=== PATIENT | female | born 1990 | race Caucasian/White ===

== ENCOUNTER 2016-08-20 10:52 | Outpatient (CLI) | payer OTHER | END 2016-08-20 10:53 | disposition home or self-care (01) | LOC: BABIESSH 10:52 | PROVIDERS: ATTEND Obstetrics & Gynecology | DX: Z39.1 Encounter for care and examination of lactating mother (principal) ==

== ENCOUNTER 2016-08-27 15:02 | Outpatient (CLI) | payer OTHER | END 2016-08-27 15:03 | disposition home or self-care (01) | LOC: BABIESSH 15:02 | PROVIDERS: ATTEND Obstetrics & Gynecology | DX: Z39.1 Encounter for care and examination of lactating mother (principal) ==

== ENCOUNTER 2016-09-07 13:50 | Outpatient (CLI) | payer OTHER | END 2016-09-07 13:51 | disposition home or self-care (01) | LOC: BABIESSH 13:50 | PROVIDERS: ATTEND Family Medicine | DX: Z39.1 Encounter for care and examination of lactating mother (principal) ==

== ENCOUNTER 2016-09-11 13:50 | Outpatient (CLI) | payer OTHER | END 2016-09-11 13:51 | disposition home or self-care (01) | LOC: BABIESSH 13:50 | PROVIDERS: ATTEND Obstetrics & Gynecology | DX: Z39.1 Encounter for care and examination of lactating mother (principal) ==